=== PATIENT | male | born 1950 | race Caucasian/White ===

== ENCOUNTER 2020-04-24 07:38 | Outpatient (CLI) | payer MEDICARE, MEDICAID, SELFPAY | END 2020-04-24 07:39 | disposition home or self-care (01) | PROVIDERS: PCP Family Medicine; Visit Provider Family Medicine | DX: F71 Moderate intellectual disabilities (principal); H90.3 Sensorineural hearing loss, bilateral | CPT/HCPCS: 92557; 92567 ==

== ENCOUNTER 2021-08-27 13:54 | Outpatient (CLI) | payer MEDICARE, MEDICAID, SELFPAY | END 2021-08-27 13:55 | disposition home or self-care (01) | LOC: ANHAUDIO 13:56 | PROVIDERS: PCP Family Medicine; Visit Provider Family Medicine | DX: F71 Moderate intellectual disabilities (principal) | CPT/HCPCS: 99199 ==

== ENCOUNTER 2021-10-27 11:20 | Outpatient (CLI) | payer MEDICARE, MEDICAID, SELFPAY | END 2021-10-27 11:21 | disposition home or self-care (01) | LOC: ANHAUDIO 11:23 | PROVIDERS: PCP Family Medicine; Visit Provider Family Medicine | DX: F71 Moderate intellectual disabilities (principal) | CPT/HCPCS: 99199 ==

== ENCOUNTER 2021-11-16 11:39 | Outpatient (CLI) | payer MEDICARE, MEDICAID, SELFPAY | END 2021-11-16 11:40 | disposition home or self-care (01) | LOC: ANHAUDIO 11:41 | PROVIDERS: PCP Family Medicine; Referring Provider Family Medicine; Visit Provider Family Medicine | DX: F71 Moderate intellectual disabilities (principal) | CPT/HCPCS: 92557; 92567 ==